=== PATIENT | male | born 1995 ===

== ENCOUNTER 2024-01-03 10:26 | Emergency (ER) | payer BC ==
[~2024-01-03] VITALS: Ht 190.5 cm; Wt 100.0 kg
[2024-01-03 10:36] VITALS: TEMP 97.9
[2024-01-03] MEDS ORDERED: Ondansetron 4 MG/2 ML VIAL IV ONE (12:15)
[2024-01-03] MEDS ORDERED: NS 1,000 ML IV ONE (12:15)
[2024-01-03] MEDS ORDERED: Morphine 4 MG/ML VIAL IV ONE (12:15)
[2024-01-03 12:23] LABS: BASO # 0.1 K/mm3 (0.0-0.2); EOS # 0.4 K/mm3 (0.0-0.7); GRAN # 2.5 K/mm3 (1.4-6.5); GRAN % 40.3 % (42.2-75.2); HEMOGLOBIN 15.4 g/dl (13.5-18.0); LYMPH # 2.6 K/mm3 (1.2-3.4); LYMPH % 41.3 % (20.0-51.0); MEAN CELL VOLUME 95 fl (80.0-100.0); MEAN CORPUSCULAR HEMOGLOBIN 32 pg (27-31); MEAN CORPUSCULAR HGB CONC 34 g/dl (33.0-37.0); MEAN PLATELET VOLUME 9.4 fl (7.4-10.4); MONO # 0.7 K/mm3 (0.1-0.6); MONO % 11.1 % (1.7-9.3); PLATELET COUNT 253 K/mm3 (130-400); RED BLOOD COUNT 4.76 M/mm3 (4.20-5.60); REDCELL DISTRIBUTION WIDTH-CV 12.6 % (11.5-14.5)
[2024-01-03 12:36] LABS: ALBUMIN 4.7 g/dL (3.5-5.0); CALCIUM 9.6 mg/dL (8.4-10.2); CREATININE, serum 1.18 mg/dL (0.72-1.25); POTASSIUM 4.1 mEq/L (3.5-4.5); TOTAL PROTEIN 7.6 g/dl (6.2-8.1)
[2024-01-03] MEDS ORDERED: Iohexol 300 - 100 ML VIAL IV ONE (12:39)
[2024-01-03] MEDS ORDERED: NS 100 ML IV SCH (12:40)
[2024-01-03] MEDS ORDERED: NORCO 325 MG-51 TAB PO (13:32)
[2024-01-03 14:02] VITALS: BP 118/78; PULSE 58
== END 2024-01-03 14:02 | disposition home or self-care (01) ==
LOC: COL.ER 10:26
PROVIDERS: Physician Assistant
DX: K42.9 Umbilical hernia without obstruction or gangrene (principal); Z87.891 Personal history of nicotine dependence
CPT/HCPCS: J2270; J2405; J7030; Q9967